=== PATIENT | male | born 1995 ===

== ENCOUNTER 2025-07-03 17:43 | Emergency (ER) | payer MEDICAID, MEDICARE | END 2025-07-03 21:05 | disposition home or self-care (01) | LOC: JD.ED 17:43 | DX: M54.41 Lumbago with sciatica, right side (principal); M54.42 Lumbago with sciatica, left side; M25.561 Pain in right knee; M25.562 Pain in left knee; E10.22 Type 1 diabetes mellitus with diabetic chronic kidney disease; N18.6 End stage renal disease; E10.69 Type 1 diabetes mellitus with other specified complication; Z86.16 Personal history of COVID-19; F17.200 Nicotine dependence, unspecified, uncomplicated; Z79.899 Other long term (current) drug therapy; Z99.2 Dependence on renal dialysis; Z88.5 Allergy status to narcotic agent; Z88.2 Allergy status to sulfonamides | CPT/HCPCS: 71046; 73562; 99284; J7512 ==